=== PATIENT | male | born 1980 | race Caucasian/White ===

== ENCOUNTER 2020-08-16 14:32 | Emergency (ER) | payer BC ==
--- NOTE | 2020-08-16 15:26 | EDM.PDOC ---
ED HPI GENERAL MEDICAL PROBLEM - General Chief Complaint: Neuro Symptoms/Deficits Stated Complaint: TINGLING IN LEFT ARM/LEFT EYE BLURRED VISION Time Seen by Provider: 08/16/20 14:59 Source of Information: Reports: Patient History Limitations: Reports: No Limitations - History of Present Illness INITIAL COMMENTS - FREE TEXT/NARRATIVE: 40-year-old male presents to the emergency department with complaints of blurred vision to his left eye and numbness and tingling noted to his left forearm. Patient states that the numbness and tingling has been intermittent over the past several months so this is not something new associated with his blurred vision. He states he woke with blurred vision noted to his left eye of this morning and it has gotten slightly better since then however it has not resolved. He states that this has caused him to have a headache due to his eyes being unable to focus. He denies any recent head trauma or injury. He denies any double vision or floaters in his vision. He denies any history of chronic headaches. Denies any new onset hemiplegia. He denies any fever, chills, nausea, vomiting diarrhea, or abdominal pain. He denies any significant medical history. He does not take any prescription medications and he does not have a primary provider. He has a history of smoking in the past however he currently chews tobacco for the past 15+ years. He chews approximately 1 can every 2 days. - Related Data Allergies Allergy/AdvReac Type Severity Reaction Status Date / Time bee venom protein (honey bee) Allergy Severe Swelling Verified 08/16/20 14:49 Home Meds: Home Meds . [No Known Home Meds] 08/16/20 [History] Past Medical History Endocrine/Metabolic History: Reports: Obesity/BMI 30+ - Past Surgical History GI Surgical History: Reports: Cholecystectomy, Hernia Repair/Other Musculoskeletal Surgical History: Reports: Arthroscopic Procedure, Other (See Below) Other Musculoskeletal Surgeries/Procedures:: Left Wrist Surgery Social & Family History - Tobacco Use Tobacco Use Status *Q: Never Tobacco User - Caffeine Use Caffeine Use: Reports: Coffee - Recreational Drug Use Recreational Drug Use: No ED ROS GENERAL - Review of Systems Review Of Systems: Comprehensive ROS is negative, except as noted in HPI. ED EXAM GENERAL W FULL EYE - Physical Exam Exam: See Below Exam Limited By: No Limitations General Appearance: Alert, WD/WN, No Apparent Distress Eye Exam: Left Eye: Vision Changes, Bilateral Eye: EOMI, PERRL Visual Acuity (R) 20/: 10 Visual Acuity (L) 20/: 15 With Correction: No Eyelids: Bilateral: Normal Appearance Conjunctiva & Sclera: Bilateral: Normal Appearance Extraocular Movements: Bilateral: Intact Pupils: Normal Accommodation Pupillary Size: Bilateral: 4 mm Pupillary Reaction: Bilateral: Brisk Ears: Normal External Exam, Hearing Grossly Normal Nose: Normal Inspection Throat/Mouth: Normal Inspection, Normal Lips, Normal Voice, No Airway Compromise Head: Atraumatic Neck: Normal Inspection, Supple, Non-Tender Respiratory/Chest: No Respiratory Distress, Lungs Clear, Normal Breath Sounds, No Accessory Muscle Use, Chest Non-Tender Cardiovascular: Normal Peripheral Pulses, Regular Rate, Rhythm, No Edema, No Murmur GI/Abdominal: Normal Bowel Sounds, Soft, Non-Tender, No Distention (Male) Exam: Deferred (Female) Exam: Deferred Rectal (Males) Exam: Deferred Rectal (Female) Exam: Deferred Back Exam: Normal Inspection Extremities: Normal Inspection, Normal Range of Motion, Non-Tender, No Pedal Edema, Normal Capillary Refill Neurological: Alert, Oriented, CN II-XII Intact, Normal Cognition Psychiatric: Normal Affect, Normal Mood Skin Exam: Warm, Dry, Intact, Normal Color, No Rash Lymphatic: No Adenopathy #1 Interpretation EKG Date: 08/16/20 Time: 15:01 Rhythm: NSR Rate (Beats/Min): 73 Barton: Normal P-Wave: Present QRS: Normal ST-T: Normal QT: Normal Comparison: NA - No Prior EKG EKG Interpretation Comments: Per Dr. Becerra interpretation: normal sinus rhythm at 73 Course - Vital Signs Text/Narrative:: Upon assessment, the patient's full neuro exam is completely unremarkable. Does complain of blurred vision in his left eye. He does have hypertension at the time of triage assessment. I have elected to do a CT scan of the patient's head, I have also ordered a CBC, CMP and a C-reactive protein. Last Recorded V/S: Last Vital Signs Temp 97.6 F 08/16/20 14:45 Pulse 68 08/16/20 14:45 Resp 16 08/16/20 14:45 BP 172/104 H 08/16/20 14:45 Pulse Ox 97 08/16/20 14:45 - Orders/Labs/Meds Orders: Active Orders 24 hr Category Date Time Status EKG Documentation Completion [RC] STAT Care 08/16/20 15:09 Active Labs: Laboratory Tests 08/16/20 08/16/20 Range/Units 14:55 14:55 WBC 6.95 (4.23-9.07) K/mm3 RBC 5.65 (4.63-6.08) M/mm3 Hgb 16.8 (13.7-17.5) gm/dl Hct 47.1 (40.1-51.0) % MCV 83.4 (79.0-92.2) fl MCH 29.7 (25.7-32.2) pg MCHC 35.7 H (32.2-35.5) g/dl RDW Std Deviation 38.3 (35.1-43.9) fL Plt Count 230 (163-337) K/mm3 MPV 11.1 (9.4-12.3) fl Neut % (Auto) 62.8 (34.0-67.9) % Lymph % (Auto) 27.5 (21.8-53.1) % Rowan % (Auto) 6.8 (5.3-12.2) % Eos % (Auto) 2.2 (0.8-7.0) Baso % (Auto) 0.4 (0.1-1.2) % Neut # (Auto) 4.37 (1.78-5.38) K/mm3 Lymph # (Auto) 1.91 (1.32-3.57) K/mm3 Rowan # (Auto) 0.47 (0.30-0.82) K/mm3 Eos # (Auto) 0.15 (0.04-0.54) K/mm3 Baso # (Auto) 0.03 (0.01-0.08) K/mm3 Sodium 138 (136-145) mEq/L Potassium 3.8 (3.5-5.1) mEq/L Chloride 102 (98-107) mEq/L Carbon Dioxide 23 (21-32) mEq/L Anion Gap 16.8 H (5-15) BUN 13 (7-18) mg/dL Creatinine 0.2 L (0.7-1.3) mg/dL Est Cr Clr Drug Dosing 586.81 mL/min Estimated GFR (MDRD) > 60 (>60) mL/min BUN/Creatinine Ratio 65.0 H (14-18) Glucose 94 (70-99) mg/dL Calcium 8.9 (8.5-10.1) mg/dL Magnesium 2.1 (1.8-2.4) mg/dL Total Bilirubin 1.0 (0.2-1.0) mg/dL AST 52 H (15-37) U/L ALT 127 H (16-63) U/L Alkaline Phosphatase 62 (46-116) U/L Troponin I < 0.017 (0.00-0.056) ng/mL C-Reactive Protein <0.2 (<1.0) mg/dL Total Protein 7.8 (6.4-8.2) g/dl Albumin 4.4 (3.4-5.0) g/dl Globulin 3.4 gm/dL Albumin/Globulin Ratio 1.3 (1-2) - Re-Assessments/Exams Free Text/Narrative Re-Assessment/Exam: 08/16/20 15:42 Hematology is essentially unremarkable, chemistry reveals a sodium of 138, potassium 3.8, anion gap 16.8, BUN 13, creatinine 0.2, glucose 94, magnesium 2.1, total bilirubin 1.0, AST 52, ALT 127, alk phos 62, troponin less than 0.017, C-reactive protein less than 0.2 08/16/20 16:[address]: 1. Minimal sinus findings which are believed to be chronic and incidental. 2. Nothing acute is appreciated on noncontrast head CT exam. Patient will be discharged home with recommendations that he follow-up with his eye care provider. Departure - Departure Time of Disposition: 16:05 Disposition: Home, Self-Care 01 Condition: Good Clinical Impression: Blurred vision, left eye - Discharge Information Instructions: Blurred Vision, Adult Referrals: PCP,Not In Area [Primary Care Provider] - Forms: ED Department Discharge Additional Instructions: You were seen in the emergency department today with complaints of blurred vision in your left eye and intermittent numbness in your left arm. CT scan of your head was completed and this was completely unremarkable. Your lab work was completed as well which was essentially unremarkable however your liver enzymes are quite elevated. Recommend that you stop drinking alcohol. You will need to follow-up with your eye care provider for further evaluation regarding your vision. Also recommend that you obtain a primary care provider for further evaluation of your blood pressure as it was slightly elevated while in the emergency department. A list of providers has been provided to you. Should your condition worsen or change, do not hesitate returning to the emergency department. Sepsis Event Note (ED) - Evaluation Sepsis Screening Result: No Definite Risk - Focused Exam Vital Signs: Vital Signs Temp Pulse Resp BP Pulse Ox 08/16/20 14:45 97.6 F 68 16 172/104 H 97 - My Orders Last 24 Hours: My Active Orders 08/16/20 15:09 EKG Documentation Completion [RC] STAT - Assessment/Plan Last 24 Hours: My Active Orders 08/16/20 15:09 EKG Documentation Completion [RC] STAT
--- NOTE | 2020-08-16 16:01 | CT ---
Head CT Technique: Multiple axial sections through the brain were obtained. Intravenous contrast was not utilized. Reconstructed coronal and sagittal images were obtained. Findings: Ventricles along with basal cisterns and sulci over the convexities are within normal limits for the patient's age. No abnormal parenchymal densities are seen. No evidence of intracranial hemorrhage is seen. No midline shift or mass-effect is seen. Bone window settings were reviewed. Minimal mucosal thickening is noted within the ethmoid sinuses and frontal sinuses which are likely incidental. Nothing acute is seen within the mastoid sinuses. No acute calvarial abnormality is appreciated. Impression: 1. Minimal sinus findings which are believed to be chronic and incidental. 2. Nothing acute is appreciated on noncontrast head CT exam. Diagnostic code #2
== END 2020-08-16 16:23 | disposition home or self-care (01) ==
LOC: JD.ED 14:32
DX: H53.8 Other visual disturbances (principal); E66.9 Obesity, unspecified; Z68.30 Body mass index [BMI] 30.0-30.9, adult; Z91.030 Bee allergy status
CPT/HCPCS: 36415; 70450; 70450-26; 80053; 83735; 84484; 85025; 86140; 93005; 93010; 99283; 99284-25